=== PATIENT | female | born 1985 | race Caucasian/White ===

== ENCOUNTER → 2017-08-29 | Outpatient (CLI) | payer OTHER ==
--- NOTE | 2017-08-30 09:07 | XR ---
EXAMINATION TYPE: XR chest 2V DATE OF EXAM: 08/29/2017 COMPARISON: NONE INDICATION: Cough TECHNIQUE: Frontal and lateral views of the chest are obtained. FINDINGS: The heart size is normal. The pulmonary vasculature is normal. The lungs are clear. IMPRESSION: 1. No acute pulmonary process.
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
== END | disposition home or self-care (01) ==
LOC: RADCTMAIN 18:37
PROVIDERS: ATTEND Family Medicine
DX: M54.2 Cervicalgia (principal); R51 Headache; R05 Cough
CPT/HCPCS: 70450; 71020; 72125

== ENCOUNTER → 2017-09-04 | Outpatient (CLI) | payer OTHER ==
--- NOTE | 2017-09-04 09:13 | US ---
EXAMINATION TYPE: US liver DATE OF EXAM: 09/04/2017 COMPARISON: NONE CLINICAL HISTORY: R94.5 abnormal liver enzymes. Elevated liver enzymes EXAM MEASUREMENTS: Liver Length: 16.9 cm Gallbladder Wall: 0.2 cm CBD: 0.5 cm Right Kidney: 11.8 x 4.4 x 6.1 cm Pancreas: limited evaluation due to overlying bowel content Liver: attenuating Gallbladder: multiple stones Evidence for sonographic Redd's sign: No CBD: wnl Right Kidney: visualized portions show no evidence of hydronephrosis Heterogeneous hyperechoic appearance of liver is noted. No intrahepatic ductal dilatation is seen. Ev aluation focal mass is suboptimal due to the heterogeneity but no suspicious solid or cystic masses a re identified. There is stone filled gallbladder. There is no pericholecystic fluid collection or abn ormal gallbladder wall thickening. IMPRESSION: 1. Heterogeneous hyperechoic appearance of liver is consistent with diffuse fatty infiltration or und erlying hepatocellular disease. Imaging guided random biopsy for tissue analysis can be performed if desired. 2. Multiple gallstones without secondary ultrasound evidence for acute cholecystitis.
== END | disposition home or self-care (01) ==
LOC: RADUSWWP 07:36
PROVIDERS: ATTEND Family Medicine
DX: K80.20 Calculus of gallbladder without cholecystitis without obstruction (principal); K76.89 Other specified diseases of liver
CPT/HCPCS: 76705